=== PATIENT | female | born 1975 | race Hispanic/Latino ===

== ENCOUNTER 2022-12-06 22:33 | Emergency (ER) | payer SELFPAY ==
[2022-12-06] MEDS ORDERED: LIDOCAINE 2% W/EPI 1:200,000 MPF 20 ML VIAL IM ONE (23:11)
[2022-12-06] MEDS ORDERED: TDAP (DIPHTH,PERTUSS(ACELL),TET VAC) 0.5 ML VIAL IMVAC ONE (23:11)
[2022-12-07] MEDS ORDERED: LIDOCAINE HCL JELLY 2% 6 ML SYRINGE TOP ONE (01:30)
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
[2022-12-07] MEDS ORDERED: DERMABOND SKIN ADHESIVE TOP ONE (02:18)
[2022-12-07 02:33] VITALS: O2SAT 99
[2022-12-07 02:34] VITALS: BP 137/86; TEMP 98
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
== END 2022-12-07 02:26 ==
LOC: ER 22:33
PROC: 0HQ1XZZ Repair Face Skin, External Approach (ICD-10-PCS; principal; 2022-12-07)
DX: S01.412A Laceration without foreign body of left cheek and temporomandibular area, initial encounter (principal); S02.2XXA Fracture of nasal bones, initial encounter for closed fracture; K08.89 Other specified disorders of teeth and supporting structures; Z88.0 Allergy status to penicillin
CPT/HCPCS: 70450; 70486; 71045; 72125; 76377; 96372; 99284

== ENCOUNTER 2023-07-02 14:22 | Emergency (ER) | payer SELFPAY ==
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
--- NOTE | 2023-07-02 14:41 | EDPHYS ---
Physician Documentation [facility] Name: Margo Calderon Age: 47 yrs Sex: Female : 1975 Arrival Date: 07/02/2023 Time: 14:22 Bed 12 Private MD: ED Physician Mark Jimenez HPI: 07/01 14:30 This 47 yrs old Female presents to ER via Ambulatory with complaints of Rash. jh7 14:30 The patient's rash thought to be caused by an unknown cause. The rash is located on the jh7 right arm, left arm, right leg and left leg. The rash can be described as urticarial. Onset: The symptoms/episode began/occurred 3 day(s) ago. Associated signs and symptoms: Pertinent positives: itching, Pertinent negatives: burning sensation, difficulty breathing, fever, nausea, Pain swelling of lips, swelling of throat, swelling of tongue, vomiting, wheezing. 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 - Infectious Disease History:: Denies. - Social history:: Smoking status: Reported history of juuling and/or vaping. ROS: 14:30 Constitutional: Negative for fever, chills, and weight loss, Neck: Negative for injury, jh7 pain, and swelling, Cardiovascular: Negative for chest pain, palpitations, and edema, Respiratory: Negative for shortness of breath, cough, wheezing, and pleuritic chest pain, Abdomen/GI: Negative for abdominal pain, nausea, vomiting, diarrhea, and constipation, MS/Extremity: Negative for injury and deformity, Neuro: Negative for headache, weakness, numbness, tingling, and seizure, 14:30 Skin: Positive for rash, 14:30 All other systems are negative, Exam: 14:30 Constitutional: This is a well developed, well nourished patient who is awake, alert, jh7 and in no acute distress. Head/Face: Normocephalic, atraumatic. Neck: Trachea midline, no thyromegaly or masses palpated, and no cervical lymphadenopathy. Supple, full range of motion without nuchal rigidity, or vertebral point tenderness. No Meningismus. Cardiovascular: Regular rate and rhythm with a normal S1 and S2. No gallops, murmurs, or rubs. Normal PMI, no JVD. No pulse deficits. Respiratory: Lungs have equal breath sounds bilaterally, clear to auscultation and percussion. No rales, rhonchi or wheezes noted. No increased work of breathing, no retractions or nasal flaring. Back: No spinal tenderness. No costovertebral tenderness. Full range of motion. MS/ Extremity: Pulses equal, no cyanosis. Neurovascular intact. Full, normal range of motion. Neuro: Awake and alert, GCS 15, oriented to person, place, time, and situation. Motor strength 5/5 in all extremities. Sensory grossly intact. Normal gait. 14:30 Skin: urticaria, on the left leg and right leg and left arm and right arm, Vital Signs: 14:29 BP 161 / 116; Pulse 99; Resp 18 S; Temp 98.4(TE); Pulse Ox 100% on R/A; Weight 76.66 kg as6 (R); Height 5 ft. 0 in. (R); Pain 0/10; 14:48 BP 158 / 86; Pulse 89; Resp 16; Pulse Ox 100% on R/A; mb9 14:29 Body Mass Index 33.01 (76.66 kg, 152.4 cm) as6 14:29 Pain Scale: Adult as6 MDM: 14:25 Patient medically screened. [facility] 14:52 Differential diagnosis: impetigo, allergic reaction, hives. Data reviewed: vital signs, [facility] nurses notes. I considered the following discharge prescriptions or medication management in the emergency department Medications were administered in the Emergency Department. See MAR. Counseling: I had a detailed discussion with the patient and/or guardian regarding the historical points, exam findings, and any diagnostic results supporting the discharge/admit diagnosis, to return to the emergency department if symptoms worsen or persist or if there are any questions or concerns that arise at home. Response to treatment: the patient's symptoms have mildly improved after treatment. Special discussion: Only start oral steroids in 72 hours if symptoms persist.. Administered Medications: 14:43 Drug: Dexamethasone IM 10 mg IM once Route: IM; Site: left deltoid; mb9 14:49 Follow up: Response: No adverse reaction mb9 Disposition: 15:31 I was immediately available on-site in the Emergency Department for consultation in the ms3 care of the patient. Disposition Summary: 07/02/23 14:41 Discharge Ordered Notes: Location: Home [facility] Problem: new [facility] Symptoms: are unchanged [facility] Condition: Stable [facility] Diagnosis - Allergic urticaria [facility] Followup: [facility] - With: Private Physician - When: 2 - 3 days - Reason: Recheck today's complaints Discharge Instructions: - Discharge Summary Sheet [facility] - Hives [facility] - Rash, Adult [facility] Forms: - Medication Reconciliation Form [facility] - Thank You Letter [facility] - Patient Portal Instructions [facility] - Leadership Thank You Letter [facility] Prescriptions: - Hydroxyzine HCl 25 mg Oral Tablet - take 1 tablet ORAL route every 6 hours As needed; 12 tablet; Refills: 0, [facility] Product Selection Permitted - Medrol (Taj) 4 mg Oral Tablets, Dose Pack - take 1 tablet ORAL route as directed - follow package instructions; 1 packet; [facility] Refills: 0, Product Selection Permitted Signatures: Mark Jimenez DO DO ms3 Matty Michele, RN RN as6 Neena Rene, GRADING CLERK GRADING CLERK 7 Nelida Minor RN RN mb9
[2023-07-02] MEDS ORDERED: dexAMETHasone 10 MG/ML VIAL ONE (14:44)
[2023-07-02 19:42] VITALS: BP 158/86; TEMP 98.4; O2SAT 100
== END 2023-07-02 14:49 | disposition home or self-care (01) ==
LOC: ER 14:22
DX: L50.0 Allergic urticaria (principal); Z88.0 Allergy status to penicillin
CPT/HCPCS: 96372; 99284; J1100